=== PATIENT | female | born 1960 | race Caucasian/White ===

== ENCOUNTER 2017-06-18 10:53 | Observation (INO) ==
--- NOTE | 2017-06-18 13:18 | Urology - Consult Note ---
Date of Encounter: 06/18/17 Time of Encounter: 13:16 - Assessment and Plan (1) Left ureteral stone Current Visit: Yes Status: Acute Assessment and plan: plan on taking patient to OR for cyto,left ureteral stent placement, possible left ureteroscopy. Urology CN:MALORIE Consult date: 06/18/17 Reason for consult Urology: Other (left flank pain) Requesting physician: Krysten Moyer History of present illness: Jackie is a 56-year-old female with a history of recurrent kidney stones. Patient has not had a stone years. She was doing well earlier today than AND had let sided flank pain. Pain was 10 out of 10 in nature. Patient was outside facility where she was found to have a 3 mm ureteral stone. Patient's pain is well-controlled this time with IV pain medicine. Nausea vomiting. No fevers. Patient did have a slightly elevated WBC count of 13,000. Past Med Surg Social Fam HX - Past Medical History Medical history: hyperlipidemia, hypertension, kidney stones, osteoporosis Psychiatric history: no psych history - Past Surgical History Surgical History: breast surgery, cholecystectomy - Social History Smoking Status: Never smoker Smokeless Tobacco Status: No Alcohol use: rarely Drug use: none - Family History Father Living Status: Still Living Hx Family Cardiac Disorders: Yes (VT) Mother Hx Family Cardiac Disorders: Yes (HTN) Hx Family Neuromuscular Disorders: Yes (Parkisons) Medications and Allergies Alendronate Sodium [Fosamax] mg PO QWEEK 06/18/17 [History] Lisinopril-HCTZ 10-12.5 [Prinzide 10-12.5] each PO DAILY 06/18/17 [History] Simvastatin [Zocor] mg PO HS 06/18/17 [History] 3 Allergy/AdvReac Type Severity Reaction Status Date / Time No Known Allergies Allergy Verified 06/18/17 12:42 Review of Systems - Constitutional no fever(s) - EENT Nose, mouth and throat: no dizziness - Cardiovascular no chest pain - Respiratory no cough - Gastrointestinal abdominal pain - Musculoskeletal back pain - Integumentary no erythema - Neurological no confusion - Psychiatric no anxiety - Hematologic/Lymphatic no easy bleeding Exam Initial Vital Signs Temp Pulse Resp BP Pulse Ox 98.1 F 69 15 150/72 100 06/18/17 12:46 06/18/17 12:46 06/18/17 12:46 06/18/17 12:46 06/18/17 12:46 - General physical appearance Present: well developed - Respiratory Present: normal respiratory effort - Cardiovascular Cardiovascular exam IM: RRR - Abdomen Abdomen: Present: soft Urology Results - Labs All other labs normal. Consult Discharge Plan - Plan Referrals: Carlos Reyes DO [Primary Care Provider] -
--- NOTE | 2017-06-18 13:19 | Anesthesia Evaluation PreOp ---
Date of Encounter: 06/18/17 Time of Encounter: 13:18 - Past History Planned Operation: Cystoscopy, Left Ureteral Stent Placement Cardiac History: HTN, Hyperlipidemia Pulmonary History: Denies Any Significant HX, Snore FOOT ORTHOPEDIST History: Denies Any Significant HX Other Medical History: Denies Any Significant HX Anesthesia History: Past Anesthesia, Problems (PONV) Alcohol Use: rarely Drug use: none Medications and Allergies Alendronate Sodium [Fosamax] mg PO QWEEK 06/18/17 [History] Lisinopril-HCTZ 10-12.5 [Prinzide 10-12.5] each PO DAILY 06/18/17 [History] Simvastatin [Zocor] mg PO HS 06/18/17 [History] 3 Allergy/AdvReac Type Severity Reaction Status Date / Time No Known Allergies Allergy Verified 06/18/17 12:42 - Meds/Allergy Pre-op Review Medications Reviewed: Yes Allergies Reviewed: Yes Beta Blockers on Current Med List: No Anesthesia Exam Vital Signs/O2 Sat, Most Current Temp Pulse Resp BP Pulse Ox 98.1 F 69 15 150/72 100 06/18/17 12:46 06/18/17 12:46 06/18/17 12:46 06/18/17 12:46 06/18/17 12:46 Height: 5'6''/1.68m Weight: 206 lbs/92.9 kg NPO (# of Hours): 8 Pain Scale: 7 Pain Scale Used: Numeric (1 - 10) - HEENT Pupil (Motor): EOMI Mallampati: II Teeth: Normal Oral Opening: Greater than 3 - FOOT ORTHOPEDIST LOC: Oriented FOOT ORTHOPEDIST Motor: Normal RUE, Normal LUE, Normal RLE, Normal LLE, Normal Face FOOT ORTHOPEDIST Sensory: Normal: RUE, LUE, RLE, LLE, Face - Cardiac Rhythm: Regular Murmur: Systolic - Pulmonary Breath Sounds: bilateral Clear Respiratory Effort: Symmetrical Anesthesia Assess/Plan ASA Score: 2 Modified Olympia Scale for Level of Consciousness: Cooperative, oriented, and tranquil Anesthetic Plan: General Monitoring Plan: Standard Monitors Recovery Plan: PACU
[2017-06-18] MEDS ORDERED: Lidocaine -MPF 2% 2 ML VIAL ONE (13:29)
[2017-06-18] MEDS ORDERED: *HR* Propofol 200 MG/20 ML VIAL IVP ONE (13:29)
[2017-06-18] MEDS ORDERED: *HR* Midazolam HCl 2 MG/2 ML VIAL ONE (13:29)
[2017-06-18] MEDS ORDERED: *HR* FentaNYL (PF) 100 MCG/2 ML VIAL ONE (13:29)
[2017-06-18] MEDS ORDERED: *HR* Morphine 2 MG/ML SYRINGE IVP PRN ×2 (13:51→16:12)
[2017-06-18] MEDS ORDERED: Lidocaine -MPF 4% 5 ML AMPUL ONE (13:54)
[2017-06-18] MEDS ORDERED: *HR* Succinylcholine 200 MG/10 ML VIAL IVP ONE (13:54)
[2017-06-18] MEDS ORDERED: *HR* Rocuronium Bromide 50 MG/5 ML VIAL ONE (13:54)
[2017-06-18] MEDS ORDERED: Dexamethasone 4 MG/ML VIAL ONE (14:08)
[2017-06-18] MEDS ORDERED: Ondansetron 4 MG/2 ML VIAL ONE (14:08)
--- NOTE | 2017-06-18 14:41 | Operative Note ---
Date of procedure: 06/18/17 Pre-op diagnosis: left ureteral stone Post-op diagnosis: same (very narrow left upj) Procedure: left ureteroscopy and left 6x26cm ureteral stent placement Anesthesia: GETA Surgeon: Ashwin Gil Condition: stable Disposition: PACU Procedure in Detail: Patient was prepped and draped in normal sterile fashion. Timeout procedure performed. I then inserted the semirigid ureteroscope and the patient's bladder and cannulated the left ureteral orifice. I advanced the scope all the way up the ureter with no stones seen. Upon visualizing left UPJ noticed that it was quite narrow. I placed a sensor wire into the left kidney. I then placed the flexible ureteroscope into the left kidney with some difficulty negotiating this around the left UPJ. At this point I encountered the 3-4 mm stone floating in the mid calyx. I attempted to grab this and remove it using a basket device. The UPJ was too narrow to accommodate this. I then attempted to dilate the UPJ using access sheaths and this was also unsuccessful. I then placed a wire back into the left kidney and placed a 6 x 26 cm ureteral stent. Patient taken to PACU in stable condition Patient will be scheduled for return to the operating room in 1-2 weeks for left ureteroscopic stone extraction with evaluation of her left UPJ. We will need to have patient obtain copy of her CT scan at outside facility.
--- NOTE | 2017-06-18 15:00 | Anesthesia Evaluation Post Op ---
Date of Encounter: 06/18/17 Time of Encounter: 14:59 - Vital Signs Vital Signs: Vital Signs/O2 Sat, Most Current Temp Pulse Resp BP Pulse Ox 97.7 F 73 16 123/76 98 06/18/17 14:43 06/18/17 14:53 06/18/17 14:53 06/18/17 14:53 06/18/17 14:53 - Lungs Lungs: Clear Ascult./Percussion - Airway Airway: Non-obstructed - Cardiovascular Regular Rate - Mental Status Mental Status: Alert & Oriented, Answers Appropriately - Pain Pain Scale: 0 Pain Scale used: Numeric (1 - 10) - Nausea Vomiting Nausea Vomiting: Not Present - Hydration Hydration: Ice chips, Has not voided - Discharge PostOp Status: Transfer Patient to floor
[2017-06-18] MEDS ORDERED: Naloxone 0.4 MG/ML INJ IVP PRN (15:10)
[2017-06-18] MEDS ORDERED: *HR* HYDROcodone/Acet 5/325 mg TABLET PO PRN ×2 (15:10→16:18)
[2017-06-18] MEDS: Ringers Solution, Lactated 1,000 ML IVC SCH (15:56)
[2017-06-18] MEDS ORDERED: Acetaminophen 325 MG TABLET PO PRN (16:12)
[2017-06-18] MEDS ORDERED: Ondansetron 4 MG/2 ML VIAL IVP PRN (16:12)
[2017-06-18] MEDS ORDERED: NON-FORMULARY MEDICATION 1 EACH EACH (Alendronate Sodium [Fosamax] 70 MG) PO SCH (16:30)
[2017-06-18] MEDS ORDERED: 0.9 % Sodium Chloride 1,000 ML IVC SCH (16:30)
--- NOTE | 2017-06-18 16:53 | Internal Med History&Physical ---
<Miguel Angel Mejias - Last Filed: 06/18/17 17:16> Date of Encounter: 06/18/17 Time of Encounter: 15:45 Assessment and Plan (1) UTI (urinary tract infection) Current visit: Yes Status: Acute Acute UTI. Pts. WBC 12.3 on admission. Pt. reports no sx for current UTI. IVPB levaquin 750 mg daily for infection coverage. Gentle hydration w/IV Ringer's lactate @ 50 mL/HR. Monitor I&O and f/u labs. Pt. discussed w/Dr. Gandara who agrees w/plan of care. Pt. is at high risk for further infection and complications d/t current UTI, unresolved renal calculus, sx, and hx. Observation. Qualifiers: Urinary tract infection type: site unspecified Hematuria presence: with hematuria Qualified Code(s): N39.0 - Urinary tract infection, site not specified; R31.9 - Hematuria, unspecified; R31.9 - Hematuria, unspecified (2) Left ureteral stone Current visit: Yes Status: Acute Acute 3 mm renal stone in left ureter according to imaging at [facility]. Dr. Gil consulted and conducted surgical procedure today to remove left ureteral stone but UPG was too narrow. 6 x 26 cm ureteral stent placed. Patient to return in 1- 2 weeks to OR for left ureteroscopic stone extraction with evaluation of her left UPJ. Stair-step pain medications for pain mgmt. Monitor I&O. IVPB levaquin for current UTI. (3) HLD (hyperlipidemia) Current visit: Yes Status: Chronic Hx of chronic HLD. Lipid panel in a.m. labs. Continue pts. Zocor. Qualifiers: Hyperlipidemia type: pure hypercholesterolemia Qualified Code(s): E78.00 - Pure hypercholesterolemia, unspecified; E78.0 - Pure hypercholesterolemia (4) HTN (hypertension) Current visit: Yes Status: Chronic Hx of chronic HTN. Monitor pt. and VS. Continue pts. lisinopril/HCTZ. Qualifiers: Hypertension type: essential hypertension Qualified Code(s): I10 - Essential (primary) hypertension (5) Osteoporosis Current visit: Yes Status: Chronic Hx of chronic osteoporosis. Continue pts. Fosamax. Qualifiers: Osteoporosis type: unspecified Presence of current pathological fracture: unspecified Qualified Code(s): M81.0 - Age-related osteoporosis without current pathological fracture (6) DVT prophylaxis Current visit: Yes Status: Acute Bilateral SCDs on LEs for DVT prophylaxis d/t surgical procedure today to remove left ureteral stone. Internal Medicine - H&P: HPI Chief complaint: Left flank pain Admitted From: Hospital to Hospital Transfer Plans for Post Hospital Care: Home History of present illness: Ms. Acosta is a 56 year old female with medical hx of hyperlipidemia, hypertension, osteoporosis, kidney stones presents from [facility] in [place] to [facility] with chief complaint of left flank pain that she states began at 5 a.m. this morning. She rated her pain at 10/10. She also reports previous hx of kidneys stones 10 years ago and denies any complications between then and now. Patient states she was scheduled for lithotripsy in 1994 the past the kidney stone on her own. Imaging at [facility] today showed 10 mm stone in right kidney and 3 mm stone in left ureter. Pt. denies recent illness, fever, chills, nausea, vomiting, chest pain, palpitations, changes in vision, numbness , tingling, abdominal pain, headache, cough, dizziness, lightheadedness, pre- syncope, or syncope. Past Med Surg Social Fam HX - Past Medical History Source: patient, old records reviewed, obtained from family Medical history: hyperlipidemia, hypertension, kidney stones, osteoporosis Psychiatric history: no psych history - Past Surgical History Surgical History: breast surgery (Lumpectomy), cholecystectomy, knee replacement (Bilateral), other (Right wrist cyst removal, Tubal ligation) - Social History Smoking Status: Never smoker Smokeless Tobacco Status: No Alcohol use: rarely Drug use: none Current living situation: Home, With Family Activity Level: Independent ambulation Recent Out of Country Travel Within the Last 8 Weeks: No Exposure or Possible Exposure to Illness During Travel: No - Family History Father Race: Family Member Ethnicity: Non- Living Status: Still Living Hx Family Cardiac Disorders: Yes (OK, Pacemaker) Mother Race: Family Member Ethnicity: Non- Living Status: Age at : 82 Cause of : Parkinson's disease Hx Family Cardiac Disorders: Yes (HTN) Hx Family Neuromuscular Disorders: Yes (Parkinsons) Brother Race: Family Member Ethnicity: Non- Living Status: Still Living Hx Family Respiratory Disorders: Yes (Asthma) Hx Family Cancer: Yes (Throat) Internal Medicine - H&P: Meds Alendronate Sodium [Fosamax] 70 mg PO QWEEK 06/18/17 [History] Lisinopril-HCTZ 10-12.5 [Prinzide 10-12.5] 1 each PO DAILY 06/18/17 [History] Simvastatin [Zocor] 20 mg PO HS 06/18/17 [History] 3 Allergy/AdvReac Type Severity Reaction Status Date / Time No Known Allergies Allergy Verified 06/18/17 12:42 All Systems PM: A 10-system review of systems was performed and is negative for pertinent findings except as documented above in the HPI. - Constitutional Constitutional: no chills, no fever(s), no night sweats - EENT Eyes: no change in vision, no discharge, no pain, no photophobia Ears: no ear discharge, no ear pain, no tinnitus Nose, mouth and throat: no dysphagia, no nasal discharge, no neck pain, no sore throat - Breasts Breasts: as per HPI - Cardiovascular Cardiovascular ROS IM: no chest pain, no diaphoresis, no dyspnea, no lightheadedness, no palpitations, no syncope - Respiratory Respiratory: no cough, no dyspnea, no wheezing, no excessive phlegm production - Gastrointestinal Gastrointestinal: no abdominal pain, no diarrhea, no hematemesis, no hematochezia, no melena, no nausea, no vomiting - Genitourinary Genitourinary: as per HPI, flank pain (Left flank pain), no change in urinary stream, no dysuria, no hematuria Menstruation: as per HPI - Musculoskeletal Musculoskeletal ROS IM: no numbness, no tingling - Integumentary Integumentary IM: no rash, no unusual bruising - Neurological Neurological ROS: no confusion, no convulsions, no focal weakness, no numbness, no tingling, no tremor(s) - Psychiatric Psychiatric: as per HPI - Endocrine Endocrine IM: as per HPI - Hematologic/Lymphatic Hematologic/Lymphatic: no easy bruising - Allergic/Immunologic Allergic/Immunologic: as per HPI - Constitutional Vitals: Temp Pulse Resp BP Pulse Ox 97.7 F 63 12 144/79 98 06/18/17 15:42 06/18/17 16:15 06/18/17 15:42 06/18/17 16:45 06/18/17 16:45 General appearance: Present: cooperative, A&O X 3, pleasant, no acute distress, obese, answers questions appropriately - Head Head exam: Present: atraumatic, normal inspection, normocephalic - Eye Eye exam: Present: PERRL, conjuntiva pink, sclera anicteric Pupils: Present: PERRL - ENT ENT exam: Present: normal exam, normal external ear exam - Neck Neck exam general surgery: Present: normal inspection, supple, trachea midline. Absent: lymphadenopathy - Respiratory Respiratory exam: Present: CTAB. Absent: accessory muscle use, rales, rhonchi, wheezes - Cardiovascular Cardiovascular exam: Present: RRR, +S1, +S2. Absent: diastolic murmur, gallop, rubs, systolic murmur - GI/Abdominal GI/Abdominal exam: Present: normal bowel sounds, soft, no peritoneal signs. Absent: distended, tenderness - Rectal Rectal exam: Present: deferred - Additional comments: exam deferred. - Extremities Exam Extremities exam: Present: warm, radial pulses palpable and symmetrical. Absent : calf tenderness, cyanotic, pedal edema - Back Exam Back exam: Present: normal inspection - Neurological Exam Neurological exam: Present: CN II-XII intact, oriented X3, no focal deficits. Absent: pronater drift, facial droop, speech deficit - Psychiatric Psychiatric exam: Present: normal affect, normal mood - Skin Skin exam: Present: dry, intact Internal Med - H&P Results - Impressions ITS Impressions Fluoroscopy 06/18/17 00:00 IMPRESSION: Intraprocedural fluoroscopic spot images as above. See separate procedure report for more information. D/ / Chica Winchester Cha, MD / Chica Winchester Cha, MD Interpreting Provider: Chica Winchester Cha, MD - Diagnostic Studies Other Images Additional comments: Impressions Fluoroscopy 06/18/17 00:00 IMPRESSION: Intraprocedural fluoroscopic spot images as above. See separate procedure report for more information. D/ / Chica Winchester Cha, MD / Chica Winchester Cha, MD Interpreting Provider: Chica Winchester Cha, MD - VTE Documentation of Mechanical Device: Intermittent pneumatic compression device <Thao Gandara - Last Filed: 06/18/17 18:18> Date of Encounter: 06/18/17 Internal Medicine - H&P: HPI History of present illness: Ms. Acosta is a 56 year old female All Systems PM: A 10-system review of systems was performed and is negative for pertinent findings except as documented above in the HPI. - Constitutional Vitals: Temp Pulse Resp BP Pulse Ox 97.7 F 63 12 144/79 98 06/18/17 15:42 06/18/17 16:15 06/18/17 15:42 06/18/17 16:45 06/18/17 16:45 Internal Med - H&P Results - Impressions ITS Impressions Fluoroscopy 06/18/17 00:00 IMPRESSION: Intraprocedural fluoroscopic spot images as above. See separate procedure report for more information. D/ / Chica Winchester Cha, MD / Chica Winchester Cha, MD Interpreting Provider: Chica Winchester Cha, MD - Attending Attestation I examined this patient and my medical decision-making was reviewed with the Resident Physician. I agree with the documented findings, disposition and treatment plan as described except to the extent set forth below.
[2017-06-18] MEDS ORDERED: Levofloxacin 750 MG/150 ML 750 MG/150 ML BAG IVPB SCH (17:00)
[2017-06-19] MEDS: Ringers Solution, Lactated 1,000 ML IVC SCH (05:21)
[2017-06-19 05:49] LABS: Basophils % 0.2 %; Eosinophils % 0.1 %; Hematocrit 41.2 % (35.3-44.9); Hemoglobin 13.4 g/dL (11.5-15.4); Immature Granulocytes % 0.4 % (0-4); Lymphocytes # 1.5 K/mcL (0.6-4.6); Lymphocytes % 11.2 %; Mean Corpuscular HGB Conc 32.5 g/dL (31.6-35.5); Mean Corpuscular Hemoglobin 27.2 pg (28.0-33.3); Mean Corpuscular Volume 83.7 fL (83.0-100.0); Mean Platelet Volume 9.5 fL (9.4-12.4); Monocytes # 0.8 K/mcL (0.0-1.3); Monocytes % 5.8 %; Neutrophils # 11.3 K/mcL (1.6-8.9); Platelet Count 306 K/mcL (140-400); Red Blood Count 4.92 M/mcL (3.82-4.97); Red Cell Distribution Width 12.5 % (11.5-14.5); Segmented Neutrophils % 82.3 %
[2017-06-19 06:00] LABS: Hemoglobin A1C 5.1 %
[2017-06-19 06:04] LABS: BUN/Creatinine Ratio 16 (6-26); Blood Urea Nitrogen 13 mg/dL (7-20); Calcium 9.5 mg/dL (8.6-10.8); Carbon Dioxide 25 mEq/L (19-29); Chloride 105 mEq/L (98-109); Glucose 109 mg/dL (70-99); Osmolality,Calculated 291 (280-300); Potassium 3.6 mEq/L (3.5-4.5); Sodium 140 mEq/L (136-145); eGFR For African Americans > 60 (> 60); eGFR For Non-African Americans > 60 (> 60)
[2017-06-19 06:13] LABS: Chol/HDL Ratio 3.6 (0-4.9)
--- NOTE | 2017-06-19 08:29 | Urology Progress Note ---
Date of Encounter: 06/19/17 Time of Encounter: 08:28 - Assessment and Plan (1) Left ureteral stone Current Visit: Yes Status: Acute Assessment and plan: sp stenting. feeling ok. ok to dc per urology. patient will be scheduled for return to the OR in 2-3 weeks. Progress Note Narrative: patient seen. feeling much better. Objective Initial Vital Signs Temp Pulse Resp BP Pulse Ox 98.1 F 69 15 150/72 100 06/18/17 12:46 06/18/17 12:46 06/18/17 12:46 06/18/17 12:46 06/18/17 12:46 - General physical appearance Present: well developed - Abdomen Present: soft - Labs 06/19/17 04:38 06/19/17 04:38 Diabetes panel 06/19/17 06/19/17 06/19/17 Range/Units 04:38 04:38 04:38 Sodium 140 (136-145) mEq/L Potassium 3.6 (3.5-4.5) mEq/L Chloride 105 (98-109) mEq/L Carbon Dioxide 25 (19-29) mEq/L BUN 13 (7-20) mg/dL Creatinine 0.83 (0.57-1.11) mg/dL Glucose 109 H (70-99) mg/dL Hemoglobin A1c 5.1 ( - 5.6) % Calcium 9.5 (8.6-10.8) mg/dL Triglycerides 141 (< 150) mg/dL HDL Cholesterol 43 (40-59) mg/dL Calcium panel 06/19/17 Range/Units 04:38 Calcium 9.5 (8.6-10.8) mg/dL Pituitary panel 06/19/17 Range/Units 04:38 Sodium 140 (136-145) mEq/L Potassium 3.6 (3.5-4.5) mEq/L Chloride 105 (98-109) mEq/L Carbon Dioxide 25 (19-29) mEq/L BUN 13 (7-20) mg/dL Creatinine 0.83 (0.57-1.11) mg/dL Glucose 109 H (70-99) mg/dL Calcium 9.5 (8.6-10.8) mg/dL Adrenal panel 06/19/17 Range/Units 04:38 Sodium 140 (136-145) mEq/L Potassium 3.6 (3.5-4.5) mEq/L Chloride 105 (98-109) mEq/L Carbon Dioxide 25 (19-29) mEq/L BUN 13 (7-20) mg/dL Creatinine 0.83 (0.57-1.11) mg/dL Glucose 109 H (70-99) mg/dL Calcium 9.5 (8.6-10.8) mg/dL - VTE Documentation of Mechanical Device: Intermittent pneumatic compression device Consult Discharge Plan - Plan Referrals: Carlos Reyes DO [Primary Care Provider] -
[2017-06-19 10:34] VITALS: BP 118/62
--- NOTE | 2017-06-19 10:37 | Discharge Summary ---
Date of Encounter: 06/19/17 Time of Encounter: 08:45 - Discharge Diagnosis (1) Left ureteral stone Priority: Primary Status: Acute (2) HLD (hyperlipidemia) Priority: Secondary Status: Chronic Qualifiers: Hyperlipidemia type: unspecified Qualified Code(s): E78.5 - Hyperlipidemia , unspecified (3) HTN (hypertension) Priority: Secondary Status: Chronic Qualifiers: Hypertension type: essential hypertension Qualified Code(s): I10 - Essential (primary) hypertension (4) UTI (urinary tract infection) Priority: Primary Status: Ruled-out Qualifiers: Urinary tract infection type: site unspecified Hematuria presence: with hematuria Qualified Code(s): N39.0 - Urinary tract infection, site not specified; R31.9 - Hematuria, unspecified; R31.9 - Hematuria, unspecified (5) Osteoporosis Priority: Secondary Status: Chronic Qualifiers: Osteoporosis type: unspecified Presence of current pathological fracture: unspecified Qualified Code(s): M81.0 - Age-related osteoporosis without current pathological fracture - Discharge Medications Home Medications: Alendronate Sodium [Fosamax] 70 mg PO QWEEK 06/18/17 [History] Lisinopril-HCTZ 10-12.5 [Prinzide 10-12.5] 1 each PO DAILY 06/18/17 [History] Simvastatin [Zocor] 20 mg PO HS 06/18/17 [History] Allergies/Adverse Reactions: 3 Allergy/AdvReac Type Severity Reaction Status Date / Time No Known Allergies Allergy Verified 06/18/17 12:42 Date of admission: 06/18/17 12:15 Primary care physician: Carlos Reyes, Consults: 06/18/17 16:15 Consult to [employer] Power[employer] Mechanic [CONS] Routine Reason for SW Consult: Please assess patient for possible home needs for post -discharge planning. Discharging clinician: Krysten Moyer Anticipated date of discharge: 06/19/17 - Patient Status Disposition: Home, Self-Care Condition: Fair Functional capacity at discharge: independent ambulation Overall status at discharge: patient is progressing back to baseline - Discharge Instructions Follow Up With: Carlos Reyes, [Primary Care Provider] - Additional Instructions: F/up with PCP in 1-2 weeks F/up with Urology in 2-3 weeks - Diet and Activity Activity: resume usual activities as tolerated Diet: low fat, low cholesterol, low salt diet Hospital course: Ms. Acosta is a 56 year old female - Time Spent with Patient Total time spent providing and/or coordinating discharge services: Greater than 30 minutes (40 min) - Constitutional Vitals: Temp Pulse Resp BP Pulse Ox 98.3 F 67 14 118/62 98 06/19/17 10:31 06/19/17 10:31 06/19/17 10:31 06/19/17 10:31 06/19/17 10:31 General appearance: Present: cooperative, A&O X 3, answers questions appropriately - Cardiovascular Cardiovascular exam: Present: RRR, +S1, +S2. Absent: diastolic murmur, gallop, rubs, systolic murmur - VTE Documentation of Mechanical Device: Intermittent pneumatic compression device
== END 2017-06-19 12:20 | disposition home or self-care (01) ==
LOC: 3ANU
PROVIDERS: ADMIT Nurse Practitioner Family; ATTEND Internal Medicine